=== PATIENT | male | born 2000 | race Caucasian/White ===

== ENCOUNTER → 2020-06-06 08:48 | Outpatient (CLI) | payer OTHER, SELFPAY ==
--- NOTE | 2020-06-06 08:56 | US_ITS ---
STUDY: SCROTUM ULTRASOUND REASON FOR EXAM: Male, 20 years old. lt testi mass TECHNIQUE: Ultrasound evaluation of the scrotum was performed with color Doppler and static mena-scale imaging. COMPARISON: None. FINDINGS: RIGHT TESTICLE INTRATESTICULAR: There is a normal size of the right testicle. The right testicle measures 5.1 x 3.2 x 2.4 cm. There is a homogenous echotexture. There is normal arterial and normal venous vascularity. There is no demonstrated right testicular mass or cyst. EXTRATESTICULAR: The epididymis is normal in size. The epididymis head measures 0.7 x 1.3 x 0.8 cm. There is normal vascularity of the epididymis. There is no demonstrated epididymal cystic structure. There is no demonstrated hydrocele. There is no demonstrated varicocele. There is no demonstrated extratesticular mass or cyst. LEFT TESTICLE INTRATESTICULAR: There is a normal size of the left testicle. The left testicle measures 4.6 x 3.1 x 2.4 cm. There is a homogenous echotexture. There is normal arterial and normal venous vascularity. There is no demonstrated left testicular mass or cyst. EXTRATESTICULAR: The epididymis is normal in size. The epididymis head measures 0.7 x 1.3 x 0.8 cm. There is normal vascularity of the epididymis. There is no demonstrated epididymal cystic structure. There is no demonstrated hydrocele. There are prominent extratesticular veins consistent with a varicocele. There is no demonstrated extratesticular mass or cyst. US/Testicular with Arterial Flow IMPRESSION: Normal bilateral testicles. Left varicocele corresponding to the palpable abnormality. Electronically Signed: Rafael Price MD at 10:15 EST Tel , Service support ,
[2020-06-06 09:48] LABS: Absolute Lymphocyte Count 1.77 X10^3/uL (0.83-4.51); Absolute Neutrophil Count 1.3 X10^3/uL (2.0-7.7); Basophil# 0.02 X10^3/uL; Basophil% 0.6 % (0-1); Eosinophil# 0.15 X10^3/uL; Eosinophils% 4.1 % (0-5); Hematocrit 42.3 % (40-54); Hemoglobin 13.7 g/dL (13.0-16.5); Lymphocyte # 1.77 X10^3/ul (4.0); Lymphocyte % 48.8 % (19-41); Mean Corp Hgb Conc 32.4 g/dL (32-36); Mean Corpuscular Hgb 29.4 pg (27.0-32.0); Mean Corpuscular Volume 90.8 fL (80-94); Mean Platelet Vol. 9.2 fl (6.2-12.0); Monocyte# 0.39 X10^3/uL; Monocyte% 10.7 % (0-10); NRBC Flagged by Analyzer 0 % (0-5); Neutrophil # 1.29 X10^3/uL (2.7-7.7); Neutrophil % 35.5 % (47-70); Platelet Count 232 K/mm3 (150-450); RBC Distribution Width CV 12.1 % (11.6-14.6); Red Blood Count 4.66 M/mm3 (4.6-6.2); White Blood Count 3.6 K/mm3 (4.4-11.0)
[2020-06-06 10:38] LABS: ALB/GLOB Ratio 1.1 RATIO (0.9-2.4); AST(SGOT) 17 U/L (15-37); Alanine Aminotransfer ALT/SGPT 20 U/L (16-61); Albumin, Serum 4.2 g/dL (3.2-5.0); Alkaline Phosphatase 44 U/L (45-117); Anion Gap 6 (5-15); BUN 18 mg/dL (7-18); BUN/Creat Ratio 18.1 RATIO (10-20); Calcium,Total 8.8 mg/dL (8.5-10.1); Chloride 106 mmol/L (98-107); Cholesterol 108 mg/dL (200); EST Glomerular Filtration Rate 99 mL/min (>60); Est Glom Filt Rate - Afr Amer 120 mL/min (>60); Globulin 3.8 g/dL (2.2-4.2); Glucose 84 mg/dL (74-106); High Density Lipoprotein 52 mg/dL; Potassium 4.2 mmol/L (3.5-5.1); Sodium Level 142 mmol/L (136-145); Triglycerides 36 mg/dL; Very Low Density Lipoprotein 7 mg/dL (5-40)
== END ==
PROVIDERS: PCP Family Medicine; Referring Provider Family Medicine; Visit Provider Family Medicine
DX: N50.89 Other specified disorders of the male genital organs (principal); Z13.220 Encounter for screening for lipoid disorders
CPT/HCPCS: 36415; 76870; 80053; 80061; 85025; 93976

== ENCOUNTER → 2022-03-14 | Outpatient (CLI) | payer BC, SELFPAY ==
--- NOTE | 2022-03-14 16:23 | MRI_ITS ---
STUDY: MRI BRAIN WITH AND WITHOUT CONTRAST REASON FOR EXAM: Male, 22 years old. Migraine headache with aura, FRONTAL INTO RT FAITH TECHNIQUE: Standardized multiplanar fat and water weighted pulse sequences were obtained. IV 13ML CLARISCAN was administered for the contrast portion of the examination. COMPARISON: CT of the brain 03/14/2015 FINDINGS: Normal size of the ventricles and extra-axial spaces for the patient''s age. Normal white matter tracts of the supratentorial brain. Normal bilateral basal ganglia. Normal thalami. There is no extra-axial fluid accumulation. Normal flow voids within the major intracranial circulation suggesting patency by spin echo criteria. Normal venous enhancement. There is no enhancing intra-axial or extra-axial abnormality. Normal sella turcica, pituitary gland, infundibular stalk, optic chiasm and hypothalamus. Normal tectal plate and pineal gland. Normal midbrain, sourva and medulla. Normal cerebellum. Normal basal cisterns. Normal bilateral temporal bones. Normal bilateral internal auditory canals. No demonstrated orbital abnormality, within the constraints of a routine brain study. Normal visualized paranasal sinuses. Normal calvarium and skull base. Normal visualized soft tissue structures. Normal visualized upper cervical spine. MRI/Brain W/WO Contrast IMPRESSION: Normal unenhanced and enhanced MRI of the brain. Electronically Signed: Dionicio Carter MD at 19:14 EDT ,
== END | disposition home or self-care (01) ==
PROVIDERS: PCP Family Medicine; Visit Provider Psychiatry & Neurology Neurology
DX: G43.109 Migraine with aura, not intractable, without status migrainosus (principal)
CPT/HCPCS: 70553; A9575

== ENCOUNTER 2022-12-10 19:58 | Emergency (ER) | payer OTHER, SELFPAY ==
[2022-12-10 19:58] VITALS: BP 142/88; PULSE 94; RESP 16; TEMP 36.1; O2SAT 99; BMI 21.5
--- NOTE | 2022-12-10 20:14 | CT_ITS ---
INDICATION: Pain EXAMINATION: CT BRAIN - CT Head or Brain W/O Contrast Injection TECHNIQUE: Serial CT axial images were obtained of the head without intravenous contrast. A radiation dose optimization technique was used for this scan. . COMPARISON: Head CT 03/14/2022. Findings: Serial CT axial images of the head without contrast. BRAIN PARENCHYMA: Normal mena-white matter differentiation. No evidence of intraparenchymal hemorrhage or hyperattenuating extra-axial fluid collection. BONES: Paranasal sinuses are clear. SCALP/REMAINING SOFT TISSUES: Unremarkable. ASPECTS Score for Acute Strokes, if applicable: 10 CT/Brain/Head without Contrast IMPRESSION: No acute intracranial hemorrhage in this noncontrast head CT. Electronically Signed: Esteban Cox MD at 21:25 EDT ,
--- NOTE | 2022-12-10 20:15 | EDS_ITS ---
HPI History of Present Illness Chief Complaint: Headache Informant: patient Onset/Context/Timing Onset: Today Context: Gradual Narrative Narrative: Patient presents with vision changes along with headache. He states he was at work today and noted problems with his vision to the right. He had problems like that with his migraines in the past. Shortly after he developed a headache. He also had some difficulty with speech. He states that although he has had the symptoms with his migraines reported seem to be worse today. He has had nausea but no vomiting. On arrival to the emergency room he was upset and crying and reportedly hyperventilating. He states his left hand is held in a tight fist and has not been able to move it. Patient did reportedly suffer a concussion a couple weeks ago at work. states that they did not do any imaging of his head at that time. [facility] Medical History Asthma Frequent headaches Hearing deficit History of pneumonia Migraines Home Medications sumatriptan succinate 50 mg tablet 50 mg PO .COMPLEX #9 tabs 02/28/22 [Rx Last Taken Unknown] Allergy/AdvReac Type Severity Reaction Status Date / Time cefazolin Allergy NEEDS Verified 12/10/22 20:02 FOLLOW-UP Family History Aunt Breast cancer Father Hypertension Mother No problems noted. 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: [employer]ism ROS ROS ED Constitutional Constitutional ED: Denies chills or fever(s) Eyes Eyes: Reports change in vision; Denies discharge from eye(s) ENT ENT ED: Denies discharge from eye(s), rhinorrhea or sore throat Cardiovascular Cardiovascular: Denies chest pain or palpitations Respiratory/Chest Respiratory/Chest: Denies cough or dyspnea Gastrointestinal Gastrointestinal: Reports nausea; Denies abdominal pain or vomiting Musculoskeletal Musculoskeletal: Reports extremity pain; Denies back pain Integumentary Denies Abrasions or rash Neurologic Neurologic: Reports headache(s) and other Details: Muscle spasms Psychiatric Psychiatric: Denies anxiety or depression Allergic/Immunologic Allergic/Immunologic ED: Denies lip swelling or urticaria EXAM Physical Exam Const Vital Signs: 12/10/22 19:58 Temperature 96.9 F L Temperature Source Temporal Pulse Rate 94 Respiratory Rate 16 Blood Pressure 142/88 H Blood Pressure Mean 106 Pulse Ox 99 Oxygen Delivery Method Room Air Positive well nourished and well developed General Appearance ED: well developed HEENT Reports normocephalic Eyes EOMs intact bilaterally Resp normal respiratory effort and clear to auscultation bilaterally Cardio regular rate and regular rhythm GI non-tender Extremity Extremity Narrative: Left hand held in a fist. Right hand held in flexion at the MCP joints. Neuro oriented x3 Psych mental status grossly normal MDM MDM MDM Narrative Medical decision making narrative: Patient was given Toradol, Compazine, Benadryl, IV fluids. CT scan of the head obtained given slightly different nature of this migraine as well as recent concussion. Radiography Diagnostic Testing: Clinical Impression(s) from Imaging Studies Brain CT 12/10/22 20:14 IMPRESSION: No acute intracranial hemorrhage in this noncontrast head CT. Electronically Signed: Esteban Cox MD at 21:25 EDT , Treatment and Re-Evaluation Narrative: CT scan of the head reveals no acute findings. On repeat evaluation patient is resting comfortably. He states his headache is improved and he no longer has any visual deficits. He is able to flex and extend his fingers on both hands without difficulty. He will be discharged home with family. Discharge Plan Triage Chief Complaint: Headache ED Provider: Pat Saavedra Dx/Rx/DC Orders Clinical Impression: Migraine Instructions: ED, Migraine (Classical) Prescriptions: No Action sumatriptan succinate 50 mg tablet 50 mg PO .COMPLEX Qty: 9 4RF Rx Instructions: 50 mg PO every two hours as needed for headache up to two tablets per day Primary Care Provider: Care Physician,No Primary Referrals: Kristina Miller MD [Med Staff - Entry Level Sales Consultant] - As Needed Kyle Contreras MD [Non-Staff] - Disposition Disposition: Home, Self Care
[2022-12-10] MEDS: Ketorolac 30 MG/ML Syringe IV (20:26)
[2022-12-10] MEDS: 0.9% Normal Saline 1,000 ML 999 ML IV (20:27)
[2022-12-10] MEDS: DiphenhydrAMINE 50 MG/ML Syringe 25 MG IV (20:27)
[2022-12-10] MEDS: proCHLORPERazine 10 MG/2 ML Vial IV (20:27)
== END 2022-12-10 21:52 | disposition home or self-care (01) ==
PROVIDERS: Emergency Provider Emergency Medicine; Visit Provider Emergency Medicine
DX: G43.909 Migraine, unspecified, not intractable, without status migrainosus (principal); J45.909 Unspecified asthma, uncomplicated; R47.9 Unspecified speech disturbances
CPT/HCPCS: 70450; 96361; 96374; 96375; 99284; J7030

== ENCOUNTER → 2023-04-26 | Outpatient (CLI) | payer OTHER, SELFPAY ==
[2023-04-26 12:30] LABS: Absolute Lymphocyte Count 2.02 X10^3/uL (0.83-4.51); Absolute Neutrophil Count 1.4 X10^3/uL (2.0-7.7); Basophil# 0.02 X10^3/uL; Basophil% 0.5 % (0-1); Eosinophil# 0.23 X10^3/uL; Eosinophils% 5.8 % (0-5); Hematocrit 43.3 % (40-54); Hemoglobin 14.6 g/dL (13.0-16.5); Lymphocyte # 2.02 X10^3/ul (0.83-4.51); Mean Corp Hgb Conc 33.7 g/dL (32-36); Mean Corpuscular Hgb 30.2 pg (27.0-32.0); Mean Corpuscular Volume 89.5 fL (80-94); Mean Platelet Vol. 9.9 fl (6.2-12.0); Monocyte# 0.33 X10^3/uL; Monocyte% 8.3 % (0-10); NRBC Flagged by Analyzer 0 % (0-5); Neutrophil # 1.36 X10^3/uL (2.7-7.7); Neutrophil % 34.4 % (47-70); Platelet Count 262 K/mm3 (150-450); RBC Distribution Width CV 11.9 % (11.6-14.6); RBC Distribution Width SD 38.9 fl (35.1-43.9); Red Blood Count 4.84 M/mm3 (4.6-6.2)
[2023-04-26 13:16] LABS: ALB/GLOB Ratio 1.2 RATIO (0.9-2.4); AST(SGOT) 20 U/L (15-37); Alanine Aminotransfer ALT/SGPT 27 U/L (16-61); Albumin, Serum 4.5 g/dL (3.2-5.0); Alkaline Phosphatase 40 U/L (45-117); Anion Gap 5 (5-15); BUN 12 mg/dL (7-18); BUN/Creat Ratio 11.8 RATIO (10-20); Calcium,Total 9.2 mg/dL (8.5-10.1); Chloride 106 mmol/L (98-107); Creatinine, Serum 1.02 mg/dL (0.70-1.30); EST Glomerular Filtration Rate 94 mL/min (>60); Est Glom Filt Rate - Afr Amer 114 mL/min (>60); Globulin 3.7 g/dL (2.2-4.2); Glucose 103 mg/dL (74-106); Potassium 4.2 mmol/L (3.5-5.1); Protein, Total 8.2 g/dL (6.4-8.2); Sodium Level 139 mmol/L (136-145); Thyroid Stim Hormone (TSH) 1.37 uIU/mL (0.358-3.74)
== END | disposition home or self-care (01) ==
LOC: BIMLAB 10:39
PROVIDERS: PCP Internal Medicine; Visit Provider Internal Medicine
DX: G43.109 Migraine with aura, not intractable, without status migrainosus (principal)
CPT/HCPCS: 36415; 80053; 84443; 85025

== ENCOUNTER 2023-09-18 15:00 | Outpatient (RCR) | payer OTHER, SELFPAY ==
--- NOTE | 2023-08-25 08:02 | HP.PTEVAL ---
Patient's Visit Information Visit Information Visit Information: CLARICE CORREA is a 23 year old M referred to Physical Therapy by ANAHI DOBBINS with a diagnosis of L shoulder strain. Date of Evaluation: 08/25/23 Physical Therapist: Deon Jones, PT, ATC Visit Plan Frequency: 2-3x /Week Duration: 4 Weeks Plan: L shoulder strengthening (rot cuff), scap stab ex's, UBE, and HEP Subjective Subjective: DOI: 06/27/23. 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 He was installing and invisible fence and trying to get the dogs to leave the yard when he grabbed onto a tree and injured his L shoulder. Pt reports he had x-rays which revealed no fracture. Pt notes he has been on light duty while at work. Pt reports the pain has not improved over this time span. Pt reports he is limited with activity including carrying a shovel, reaching behind his back, and reaching out to his side secondary to pain. Pt reports he gets a tingling sensation at times that originates in his L anterior shoulder region and extends toward his L trap region. Pt notes he has sleep difficulty at times secondary to L shoulder pain. No PMHx of L shoulder pain in the past. Pt reports he experiences a popping, clicking, and grinding sensation at times. Pt reports his L shoulder pain ranges from 4-9/10. Pain L shoulder: Pain Intensity (Out of 10): 4 Pain Intensity Range: 9 Objective Objective: Neuro: B UE sensation is WNL to light touch. B bicipital reflex= 2/3 Palpation: Pt is sore along the LHB tendon, and along the anterior aspect of the GH joint. No obvious deformity noted at this time. ROM: R shoulder flex= 180, abd= 180, ER= 90, IR= WNL; L shoulder flex= 135, abd= 120, ER= 40, IR= minimally limited MMT: R shoulder flex= 23, abd= 39, ER= 27, IR= 36 #F; L shoulder flex= 12, abd= 21, ER= 22, IR= 24 #F Special tests: Pos speeds, pos apprehension test, and pos HK sign. Popping occurred during apprehension test Balance/Special Test Scores Quick DASH Score: 45.4525 Goals Goal 1:: Decrease L shoulder pain x 50% to aid with sleep Goal Time Frame: 4-6 Weeks Goal 2:: Increase L shoulder strength x 5 #F to aid with return to work without limitation Goal Time Frame: 4-6 Weeks Goal 3:: Increase L shoulder ROM flexion and extension x 30 degrees to aid with work requirements. Goal Time Frame: 4-6 Weeks Goal 4:: I with HEP Goal Time Frame: 4-6 Weeks Rehabilitation Potential Physical Therapy Diagnosis: Pt has L shoulder pain, weakness, and limited ROM secondary to Possible L shoulder derrangement Rehabilitation Potential: Good Anticipated Interventions Patient/Client Instruction: Educate patient on: Condition and Plan of Care For the Purpose of:: To improve self management Therapeutic Exercise to Include: Strength training, Endurance training, Flexibilty training, Active ROM and Scapular Strength/Stabilization For the Purpose of:: To decrease pain, To increase ROM and To improve muscle performance and motor function Cryotherapy (ice pack, ice massage): Yes For the Purpose of:: To decrease pain Text: Thank you for the opportunity to evaluate your patient. For Medicare and Medicare HMO plans, please review the plan of care and approve it. It will need to be FAXED BACK to us at [phone] for Medicare purposes. For Medicare only, by signing this I certify the plan of care. Please let me know if there are questions or concerns regarding this plan of care. Physician Signature: Date:
--- NOTE | 2023-09-20 15:09 | HP.PTDCSUM ---
Discharge Summary D/C summary: It has been my pleasure to treat CLARICE CORREA referred by ANAHI DOBBINS, with the diagnosis of L shoulder strain for a total of 11 visit(s). Discharge Date: Please see the following information for a summary of their discharge status. Subjective Subjective: Pt reports his L shoulder pain ranges from 6-9/10. Pain L shoulder: Pain Intensity (Out of 10): 6 Overall Improvement % Improvement: 5 Objective Objective/Function: Pt has made very little progress at this time. Pt has been very compliant with POC L shoulder pain ranges from 6-9/10 L shoulder MMT: flex= 16, abd= 27, ER= 26, IR= 31 #F L shoulder ROM: flex= 135, abd= 110 Goals Goal 1:: Decrease L shoulder pain x 50% to aid with sleep Goal Progress: Not Progressing Goal 2:: Increase L shoulder strength x 5 #F to aid with return to work without limitation Goal 3:: Increase L shoulder ROM flexion and abduction x 30 degrees to aid with work requirements. Goal 4:: I with HEP Goal Progress: Goal Met Plan Plan: Discontinue secondary to lack of progress D/C Information d/c sentence: If there are questions or concerns regarding this patient's physical therapy, please feel free to call me at [phone]. Thank you for the referral of this patient. Sincerely, Deon Jones, PT, ATC Balance/Gait/Functional tests Balance/Special Test Scores Quick DASH Score: 63.6350 Improvement % Improvement: 5
== END 2023-09-18 19:00 | disposition home or self-care (01) ==
LOC: PT 15:00
PROVIDERS: PCP Internal Medicine
DX: S46.212D Strain of muscle, fascia and tendon of other parts of biceps, left arm, subsequent encounter (principal)
CPT/HCPCS: 97110; 97161

== ENCOUNTER → 2023-11-13 | Outpatient (CLI) | payer BC, SELFPAY ==
[2023-11-13 12:08] LABS: Absolute Lymphocyte Count 1.72 X10^3/uL (0.83-4.51); Absolute Neutrophil Count 1.7 X10^3/uL (2.0-7.7); Basophil# 0.02 X10^3/uL; Basophil% 0.5 % (0-1); Eosinophil# 0.04 X10^3/uL; Hematocrit 42.2 % (40-54); Hemoglobin 14.5 g/dL (13.0-16.5); Lymphocyte # 1.72 X10^3/ul (0.83-4.51); Lymphocyte % 44.4 % (19-41); Mean Corp Hgb Conc 34.4 g/dL (32-36); Mean Corpuscular Hgb 30.1 pg (27.0-32.0); Mean Corpuscular Volume 87.7 fL (80-94); Mean Platelet Vol. 9.5 fl (6.2-12.0); Monocyte# 0.37 X10^3/uL; Monocyte% 9.6 % (0-10); NRBC Flagged by Analyzer 0 % (0-5); Neutrophil # 1.71 X10^3/uL (2.7-7.7); Neutrophil % 44.2 % (47-70); Platelet Count 269 K/mm3 (150-450); RBC Distribution Width CV 12.2 % (11.6-14.6); RBC Distribution Width SD 39.2 fl (35.1-43.9); Red Blood Count 4.81 M/mm3 (4.6-6.2); White Blood Count 3.9 K/mm3 (4.4-11.0)
[2023-11-13 12:18] LABS: ALB/GLOB Ratio 1.3 RATIO (0.9-2.4); AST(SGOT) 54 U/L (15-37); Alanine Aminotransfer ALT/SGPT 103 U/L (16-61); Albumin, Serum 4.4 g/dL (3.2-5.0); Alkaline Phosphatase 35 U/L (45-117); Anion Gap 3 (5-15); BUN 18 mg/dL (7-18); BUN/Creat Ratio 18.8 RATIO (10-20); Calcium,Total 9.3 mg/dL (8.5-10.1); Chloride 103 mmol/L (98-107); Creatinine, Serum 0.96 mg/dL (0.70-1.30); EST Glomerular Filtration Rate 101 mL/min (>60); Est Glom Filt Rate - Afr Amer 123 mL/min (>60); Globulin 3.5 g/dL (2.2-4.2); Glucose 85 mg/dL (74-106); Potassium 4.1 mmol/L (3.5-5.1); Protein, Total 7.9 g/dL (6.4-8.2); Sodium Level 138 mmol/L (136-145); T4 Free Direct 0.99 ng/dL (0.76-1.46)
== END | disposition home or self-care (01) ==
LOC: BIMLAB 09:38
PROVIDERS: PCP Internal Medicine; Visit Provider Internal Medicine
DX: G43.109 Migraine with aura, not intractable, without status migrainosus (principal)
CPT/HCPCS: 36415; 80053; 84439; 85025

== ENCOUNTER 2024-02-29 11:30 | Outpatient (RCR) | payer OTHER, SELFPAY ==
--- NOTE | 2023-11-09 15:04 | HP.PTEVAL_ITS ---
Patient's Visit Information Visit Information Visit Information: CLARICE CORREA is a 23 year old M referred to Physical Therapy by ROSA BRIONES with a diagnosis of L shoulder labral repair 10/27/23. Date of Evaluation: 11/09/23 Physical Therapist: Deon Jones, PT, ATC Visit Plan Frequency: 2-3x /Week Duration: 6 Weeks Plan: Follow Muñoz protocol in chart. CP for pain Subjective Subjective: DOS: 10/27/23. Pt reports he injured his L shoulder approximately 4 months ago while performing his work requirements. Pt notes he suffered a L labral lesion which resulted in significant pain. Pt reports he had to perform PT for a while in order to get the surgery approved. Pt reports he finally had his SLAP lesion repaired and is now recovering. Pt reports his pain is still pretty severe today. Pt is R hand dominant. Pt denies tingling or numbness at this time. Pt reports occasional sleep difficulty at this time secondary to pain. Pt denies any Hx of L shoulder complications prior to this injury. 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 Pt reports his L shoulder pain is 0/10 at rest, but increases to 7/10 at worst (when he moves it the wrong way) Pain L shoulder: Pain Intensity (Out of 10): 0 Pain Intensity Range: 7 Objective Objective: Neuro: B UE sensation is WNL to light touch. B bicipital reflex= 2/3 Observation: Some incisions are still healing. No signs of infection. No obvious deformity noted. ROM: R shoulder AROM: flex= 180, abd= 180, ER= 90, IR= WNL; L shoulder flex PROM 90 degrees MMT: R shoulder: flex= 24, abd= 34, ER= 31, IR= 34 #F; L shoulder not tested today Balance/Special Test Scores Quick DASH Score: 68.1800 Goals Goal 1:: Decrease L shoulder pain x 50% to aid with sleep Goal Time Frame: 6-8 Weeks Goal 2:: Increase L shoulder flex and abd ROM to 150 degrees to aid with overhead lifting Goal Time Frame: 6-8 Weeks Goal 3:: Increase L shoulder strength to 90% of R shoulder to aid with RTW witho ut limitation Goal Time Frame: 6-8 Weeks Goal 4:: I with HEP Goal Time Frame: 4-6 Weeks Rehabilitation Potential Physical Therapy Diagnosis: Pt has L shoulder pain, weakness, and limited ROM secondary to L shoulder labral repair Rehabilitation Potential: Good Anticipated Interventions Patient/Client Instruction: Educate patient on: Condition and Plan of Care For the Purpose of:: To improve self management Therapeutic Exercise to Include: Strength training, Endurance training, Flexibilty training, Passive ROM, Active ROM and Scapular Strength/Stabilization For the Purpose of:: To decrease pain, To increase ROM and To improve muscle performance and motor function Cryotherapy (ice pack, ice massage): Yes For the Purpose of:: To decrease pain Text: Thank you for the opportunity to evaluate your patient. For Medicare and Medicare HMO plans, please review the plan of care and approve it. It will need to be FAXED BACK to us at [phone] for Medicare purposes. For Medicare only, by signing this I certify the plan of care. Please let me know if there are questions or concerns regarding this plan of care. Physician Signature: Date:
--- NOTE | 2024-01-04 14:02 | HP.PTREVAL_ITS ---
Re-Evaluation Intro: ROSA BRIONES, It has been my pleasure to treat CLARICE CORREA over the last 15 visits for L shoulder labral repair 10/27/23. Please see the progress note below for an update on the physical therapy plan of care! Subjective Subjective: Pt. reports overall doing well, he is having some pain in his shoulder, but overall doing well. Occasional pain with sleeping. Objective Objective/Function: AROM: L shoulder: flexion 165deg, abd 165deg, ER at side 30deg, IR at 30deg of abd 35deg NE. PROM: supine L shoulder flexion 175deg no pain, abd 175deg no pain, ER at 30deg 75deg mild increase NW, IR at 30deg 40deg. Pt. is overall doing very well. he is meeting his ROM progressions via protocol. He has been progressing with deltoid and scapular strengthening, but have not initiated ER/IR strengthening (not until 12 weeks). Plan Plan Plan: Pt.'s C9 is currently expiring tomorrow. Pt. is still not into his strengthening phase. He will need further PT to progress strengthening allowing for safe return to work activities. He is to see physician in 2 weeks, but I recommended that he reach out to physician to determine if he should get a new C9 to continue with PT in the mean time. COnt. to progress per protocol. Pt. is progressing as exepcted. Balance/Gait/Functional tests Balance/Special Test Scores Quick DASH Score: 47.5000 Goals Goals Goal 1:: Decrease L shoulder pain x 50% to aid with sleep Goal Time Frame: 6-8 Weeks Goal Progress: Progressing Goal 2:: Increase L shoulder flex and abd ROM to 150 degrees to aid with overhead lifting Goal Time Frame: 6-8 Weeks Goal Progress: Goal Met Goal 3:: Increase L shoulder strength to 90% of R shoulder to aid with RTW without limitation Goal Time Frame: 6-8 Weeks Goal Progress: Progressing Goal 4:: I with HEP Goal Time Frame: 4-6 Weeks Goal Progress: Progressing Anticipated Interventions Anticipated Interventions Patient/Client Instruction: Educate patient on: Condition and Plan of Care For the Purpose of:: To improve self management Therapeutic Exercise to Include: Strength training, Endurance training, Flexibilty training, Passive ROM, Active ROM and Scapular Strength/Stabilization For the Purpose of:: To decrease pain, To increase ROM and To improve muscle performance and motor function Cryotherapy (ice pack, ice massage): Yes For the Purpose of:: To decrease pain Re-Evaluation Ending Re-evaluation ending: Please do not hesitate to contact me at [phone] by phone or Fax: if you have questions or concerns regarding this new plan of care! Sincerely, KOFFI FieldT
--- NOTE | 2024-02-29 12:43 | HP.PTDCSUM ---
Discharge Summary D/C summary: It has been my pleasure to treat CLARICE CORREA referred by ROSA BRIONES, with the diagnosis of L shoulder labral repair 10/27/23 for a total of 29 visit(s). Discharge Date: Please see the following information for a summary of their discharge status. Subjective Subjective: Pt. reports overall doing great. He saw physician whom released him back to light duty. Pt. reports overall minimal to no pain. Pt. reports being HEP compliant. No issues with sleeping. Pt. to start back to work on Monday. Pain L shoulder: Pain Intensity (Out of 10): 0 Overall Improvement % Improvement: 100 Objective Objective/Function: Pt. is overall doing great. Pt. has full ROM without increase in symptoms. MMT: Pt. has full strength throughout bilateral UEs. Pt. is ~90% strength from L to R. No pain with all testing. Pt. is sleeping well. No issues with OH reaching. Pt. pleased. Pt. will be DC from PT at this point in time. Goals Goal 1:: Decrease L shoulder pain x 50% to aid with sleep Goal Progress: Goal Met Goal 2:: Increase L shoulder flex and abd ROM to 150 degrees to aid with overhead lifting Goal Progress: Goal Met Goal 3:: Increase L shoulder strength to 90% of R shoulder to aid with RTW without limitation Goal Progress: Goal Met Goal 4:: I with HEP Goal Progress: Goal Met Plan Plan: Pt. to be DC from PT at this point in time. Pt. has met all goals. D/C Information d/c sentence: If there are questions or concerns regarding this patient's physical therapy, please feel free to call me at [phone]. Thank you for the referral of this patient. Sincerely, Jarvis Marquez Sipos, DPT Balance/Gait/Functional tests Balance/Special Test Scores Quick DASH Score: 11.3625 Improvement % Improvement: 100
== END 2024-02-29 19:00 | disposition home or self-care (01) ==
LOC: PT 11:30
PROVIDERS: PCP Internal Medicine
DX: S46.212D Strain of muscle, fascia and tendon of other parts of biceps, left arm, subsequent encounter (principal)
CPT/HCPCS: 97110; 97140; 97161; 97530

== ENCOUNTER → 2024-03-14 | Outpatient (CLI) | payer BC, SELFPAY ==
[2024-03-14 15:07] LABS: Absolute Lymphocyte Count 1.86 X10^3/uL (0.83-4.51); Absolute Neutrophil Count 1.1 X10^3/uL (2.0-7.7); Basophil# 0.02 X10^3/uL; Basophil% 0.6 % (0-1); Eosinophil# 0.08 X10^3/uL; Eosinophils% 2.4 % (0-5); Hematocrit 39.7 % (40-54); Hemoglobin 13.5 g/dL (13.0-16.5); Lymphocyte # 1.86 X10^3/ul (0.83-4.51); Lymphocyte % 55.2 % (19-41); Mean Corpuscular Volume 88.2 fL (80-94); Mean Platelet Vol. 9.6 fl (6.2-12.0); Monocyte# 0.29 X10^3/uL; Monocyte% 8.6 % (0-10); NRBC Flagged by Analyzer 0 % (0-5); Neutrophil # 1.12 X10^3/uL (2.7-7.7); Neutrophil % 33.2 % (47-70); Platelet Count 242 K/mm3 (150-450); RBC Distribution Width CV 11.8 % (11.6-14.6); RBC Distribution Width SD 37.8 fl (35.1-43.9); White Blood Count 3.4 K/mm3 (4.4-11.0)
[2024-03-14 15:26] LABS: ALB/GLOB Ratio 1.3 RATIO (0.9-2.4); AST(SGOT) 16 U/L (15-37); Alanine Aminotransfer ALT/SGPT 25 U/L (16-61); Albumin, Serum 4.3 g/dL (3.2-5.0); Alkaline Phosphatase 32 U/L (45-117); Anion Gap 7 (5-15); BUN 12 mg/dL (7-18); BUN/Creat Ratio 11.9 RATIO (10-20); Calcium,Total 9.2 mg/dL (8.5-10.1); Chloride 104 mmol/L (98-107); Creatinine, Serum 1.01 mg/dL (0.70-1.30); EST Glomerular Filtration Rate 95 mL/min (>60); Est Glom Filt Rate - Afr Amer 115 mL/min (>60); Globulin 3.4 g/dL (2.2-4.2); Glucose 95 mg/dL (74-106); Potassium 3.9 mmol/L (3.5-5.1); Protein, Total 7.7 g/dL (6.4-8.2); Sodium Level 139 mmol/L (136-145)
== END | disposition home or self-care (01) ==
LOC: BIMLAB 13:52
PROVIDERS: PCP Internal Medicine; Referring Provider Internal Medicine; Visit Provider Internal Medicine
DX: G43.109 Migraine with aura, not intractable, without status migrainosus (principal); R74.8 Abnormal levels of other serum enzymes
CPT/HCPCS: 36415; 80053; 85025